=== PATIENT | male | born 1980 | race Caucasian/White ===

== ENCOUNTER 2023-10-18 11:29 | Emergency (ER) | payer BC, SELFPAY ==
[2023-10-18 11:29] VITALS: BP 129/89; PULSE 85; RESP 16; TEMP 36.2; O2SAT 96; BMI 29.7
--- NOTE | 2023-10-18 11:38 | EX.ED.DYSGE1 ---
HPI History of Present Illness Chief Complaint: Headache PFSH PFSH Allergy/AdvReac Type Severity Reaction Status Date / Time No Known Allergies Allergy Verified 10/18/23 11:29 Social History Smoking Status: Current every day smoker tobacco type: cigarettes EXAM Physical Exam Const Vital Signs: 10/18/23 11:29 10/18/23 13:29 Temperature 97.2 F L Temperature Source Temporal Pulse Rate 85 48 L Respiratory Rate 16 16 Blood Pressure 129/89 H 112/73 Blood Pressure Mean 102 86 Pulse Ox 96 99 Oxygen Delivery Method Room Air Room Air [facility] [place] Narrative Medical decision making narrative: HISTORY OF PRESENT ILLNESS: 42-year-old male presents with sudden onset of right-sided headache that occurred around 11 AM approximately 40 minutes prior to arrival. Notes history of brain aneurysms in his feet Patient denies maximal intensity within 1 minute, vomiting, neck pain, stiffness, changes in vision, fever, history malignancy, syncope, or seizures associated with headache. REVIEW OF SYSTEMS: Pertinent positives: Headache Pertinent negatives: Nausea, vomiting, loss of vision, focal weakness, loss of consciousness, seizures PHYSICAL EXAM: Nursing triage notes reviewed, Vital signs reviewed Constitutional: please see mdm HENT: MMM Eyes: Pupils equal round and reactive to light, Extraocular muscles intact Neck: No stridor, no JVD, full neck ROM, no carotid bruits Lungs: Clear to auscultation, No wheezing or rales. No increased work of breathing, no conversational dyspnea, no accessory muscle use, no nasal flaring. No respiratory distress noted Heart: Regular rate and rhythm, No murmurs, No rubs and No gallops, 2+ distal pulses (radial, femoral, posterior tibial) in all extremities Abdomen: Soft, there is no tenderness, rigidity, rebound or guarding, no obvious peritoneal signs, no palpable pulsatile abdominal masses, no auscultated abdominal bruit : No CVAT Extremities: No edema Neuro: Alert and oriented x3, neuro exam at baseline, cranial nerves II through XII are intact. No pain with extraocular muscle movement. There is negative test of skew. 5 of 5 strength in upper and lower extremities in flexion extension. Intact sensation to light touch in upper and lower extremity dermatomes. No truncal or extremity ataxia. No dysdiadochokinesia. Normal gait. 2+ reflexes in upper and lower extremities. No meningeal signs. Negative Babinski. NIH of 0. Skin: No rash or lesions noted MEDICAL DECISION MAKING: Chief Complaint: Headache External records reviewed: Reviewed records in [facility]: No recent Advanced imaging of the head Factors affecting care: Family history of brain aneurysms Social determinants of health: Denies illicit drug use such as cocaine or methamphetamine History obtained from others: none Consults: none [facility] Narrative: Patient was initially hemodynamically stable, afebrile and nontoxic-appearing. Exam without focal deficit. NIH of 0. I considered the following differential diagnosis: ICH, mass, subarachnoid hemorrhage, arterial dissection I treat the patient's pain with Tylenol, IV fluid I obtained a broad lab and imaging workup to further elucidate etiology patient complaint I obtained a CT scan of the head without contrast rule out mass, bleed, aneurysm or arterial dissection. ALL IMAGES (IF OBTAINED) HAVE BEEN PERSONALLY REVIEWED AND INTERPRETED BY MYSELF. I obtained a CT scan of the head with and without contrast. CT scan showed no evidence of dissection, large vessel occlusion, mass or bleed. The etiology the patient's complaint remains uncertain however it is unlikely be life-threatening. He is appropriate for discharge home with close outpatient neurology follow-up. Strict return precautions were discussed. The patient and/or family, caregivers express understanding. The patient and/or family, caregivers agrees with the plan. Shared decision making: I will have a discussion with the patient and or visitors regarding risk/benefits of further testing or admission. They will be made aware of of the risk/benefits inherent in this decision they will be given the opportunity to voice understanding. Total critical care time today provided was at least 0 minutes. This excludes separately billable procedures. Critical care time (if documented) is secondary to the patient having high probability of clinically significant/life threatening deterioration in the patient's condition which required my urgent intervention. Impression: 1. Headache 2. Family history of brain aneurysm Dispo: Discharge home This note was generated with [employer] dictation software. It may contain incorrect words, spelling, and punctuation that were not noted in review of the chart prior to signing. Lab Data Labs: Laboratory Results - last 24 hr 10/18/23 11:58 WBC 11.0 RBC 5.12 Hgb 15.0 Hct 46.9 MCV 91.6 MCH 29.3 MCHC 32.0 RDW Std Deviation 45.1 H RDW Coeff of Eugenie 13.1 Plt Count 285 MPV 9.7 Sodium 139 Potassium 4.0 Chloride 108 H Carbon Dioxide 26.0 Anion Gap 5 BUN 10 Creatinine 0.82 Estim Creat Clear Calc 149.12 Est GFR (MDRD) Af Amer 132 Est GFR (MDRD) Non-Af 109 BUN/Creatinine Ratio 12.2 Glucose 105 Calcium 8.9 Radiography Diagnostic Testing: Clinical Impression(s) from Imaging Studies Head/Neck CTA 10/18/23 11:48 IMPRESSION: Negative CT Brain, CTA Carotid, and CTA Brain. Electronically Signed: Omar Starkey MD at 13:26 EDT , Discharge Plan Triage Chief Complaint: Headache ED Provider: Sergio Salinas Dx/Rx/DC Orders Primary Care Provider: Reese Matias Referrals: Reese Matias MD [Primary Care Provider] - Print Language: Wolof
--- NOTE | 2023-10-18 11:48 | CT_ITS ---
INDICATION: STEEL, family hx of Brain aneurysm -- PLEASE COMMENT ON C- BRAIN SEPARATELY EXAMINATION: CT BRAIN WITHOUT CONTRAST, CTA HEAD, AND CTA NECK TECHNIQUE: Noncontrast axial images were obtained of the brain. Subsequently, routine carotid CT angiogram protocol was performed without and with IV contrast. In addition, images were obtained of the [place]. NASCET criteria using the distal ICAs for comparison were used for evaluation of stenoses. 3D reconstructions were reviewed. The protocol utilizes one or more of the following dose reduction techniques: automated exposure control, adjustment of mA and/or kV according to patient size,and/or use of iterative reconstruction technique. IV Contrast dosage and agent: 100 cc of Isovue-370. COMPARISON: No relevant prior comparison study available FINDINGS: --CT BRAIN WITHOUT CONTRAST: BRAIN PARENCHYMA: No intra- or extra-axial hemorrhage. No evidence of acute infarct. No intracranial mass or mass effect. There is preservation of the steve/white matter interface. Posterior fossa structures are unremarkable. CSF SPACES: Appropriate for age. No hydrocephalus. Basal cisterns are patent. CALVARIUM, SKULL BASE, PARANASAL SINUSES AND MASTOID AIR CELLS: Clear. No discrete lytic or blastic abnormalities. --CTA NECK: AORTIC ARCH AND BRANCHES: Normal anatomy, patent. RIGHT CCA: No occlusion, significant stenosis or dissection. RIGHT ICA: No occlusion, significant stenosis or dissection. LEFT CCA: No occlusion, significant stenosis or dissection. LEFT ICA: No occlusion, significant stenosis or dissection. RIGHT VERTEBRAL ARTERY: No occlusion, significant stenosis or dissection. LEFT VERTEBRAL ARTERY: No occlusion, significant stenosis or dissection. NECK SOFT TISSUES: Unremarkable. --CTA HEAD: --Anterior circulation: ICAs: No significant stenosis at the intracranial/visualized segments. ACAs: No significant stenosis at the visualized segments. ACOM: Present. MCAs: No significant stenosis at the visualized segments. --Posterior circulation: PCOMs: maintenance carpenter: No significant stenosis at the visualized segments. BASILAR ARTERY: No significant stenosis. VERTEBRAL ARTERIES: No significant stenosis at the intradural/visualized segments. No evidence of intracranial aneurysm or vascular malformation. CT/CTA Head AND Neck W/ Contrast IMPRESSION: Negative CT Brain, CTA Carotid, and CTA Brain. Electronically Signed: Omar Starkey MD at 13:26 EDT ,
[2023-10-18] MEDS: Acetaminophen 500 MG Tablet PO (12:07)
[2023-10-18] MEDS: 0.9% Normal Saline (1000mL) 1,000 ML 1000 ML IV (12:07)
[2023-10-18 12:15] LABS: Hematocrit 46.9 % (40-54); Mean Corpuscular Hgb 29.3 pg (27.0-32.0); Mean Corpuscular Volume 91.6 fL (80-94); Mean Platelet Vol. 9.7 fl (6.2-12.0); Platelet Count 285 K/mm3 (150-450); RBC Distribution Width CV 13.1 % (11.6-14.6); RBC Distribution Width SD 45.1 fl (35.1-43.9); Red Blood Count 5.12 M/mm3 (4.6-6.2)
[2023-10-18 12:22] LABS: Anion Gap 5 (5-15); BUN 10 mg/dL (7-18); BUN/Creat Ratio 12.2 RATIO (10-20); Calcium,Total 8.9 mg/dL (8.5-10.1); Chloride 108 mmol/L (98-107); Creatinine, Serum 0.82 mg/dL (0.70-1.30); EST Glomerular Filtration Rate 109 mL/min (>60); Est Glom Filt Rate - Afr Amer 132 mL/min (>60); Estimated Creatinine Clearance 149.12 ml/min; Glucose 105 mg/dL (74-106); Sodium Level 139 mmol/L (136-145)
[2023-10-18 13:29] VITALS: BP 112/73; PULSE 48; RESP 16; O2SAT 99
[2023-10-18 14:04] VITALS: BP 115/78; PULSE 44; RESP 18; TEMP 36.6; O2SAT 99
== END 2023-10-18 14:10 | disposition home or self-care (01) ==
PROVIDERS: Emergency Provider Emergency Medicine; PCP Family Medicine; Visit Provider Emergency Medicine
DX: R51.9 Headache, unspecified (principal); F17.210 Nicotine dependence, cigarettes, uncomplicated; Z82.49 Family history of ischemic heart disease and other diseases of the circulatory system
CPT/HCPCS: 70496; 70498; 80048; 85027; 96360; 99284; J7030; Q9967